=== PATIENT | female | born 1975 | race Caucasian/White ===

== ENCOUNTER 2018-01-11 19:41 | Emergency (ER) | END 2018-01-11 20:00 | disposition left against medical advice (07) ==

== ENCOUNTER 2018-01-11 23:30 | Emergency (ER) | END 2018-01-12 03:27 | disposition home or self-care (01) ==

== ENCOUNTER 2018-09-05 08:41 | Emergency (ER) | payer MEDICAID ==
[~2018-09-05] VITALS: Ht 162.6 cm; Wt 88.5 kg
[~2018-09-05 08:41] MED LIST: ACET500C5 PO; CYCL10TA7 PO
[2018-09-05 08:43] VITALS: Ht 162.6 cm; Wt 88.5 kg
[2018-09-05] MEDS ORDERED: HYDROCODONE/APAP (5/325) TAB PO ONE (09:00)
[2018-09-05] MEDS ORDERED: NAPR-985 PO (10:22)
[2018-09-05] MEDS ORDERED: TRAM50TA2 PO (10:22)
--- NOTE | 2018-09-05 10:30 | ERD ---
ER Documentation Chief Complaint Chief Complaint B/L KNEE PAIN X 1 WEEK HPI Patient is a 43-year-old female presents the ER for concerns of bilateral knee pain x1 week. Patient states her left knee is worse in her right knee. Patient states she has had right knee pain for the last year however most recently she started having left knee pain. Patient denies any falls or trauma. 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 Patient denies any fevers or chills. Patient has not taken any pain medications for her symptoms. Patient denies any redness or warmth noted to the knee. Patient states it is swollen. Patient denies any other symptoms at this time ROS All systems reviewed and are negative except as per history of present illness. Medications Home Meds Active Scripts Tramadol HCl (Tramadol HCl) 50 Mg Tablet, 50 MG PO Q6 PRN for PAIN, #7 TAB Prov:CARMITA OLIVER PA-C 09/05/18 Naproxen* (Naprosyn*) 500 Mg Tablet, 500 MG PO BID PRN for PAIN AND/OR INFLAMMATION, #30 TAB Prov:CARMITA OLIVER PA-C 09/05/18 Acetaminophen* (Tylophen*) 500 Mg Capsule, 1 CAP PO Q6H PRN for PAIN AND OR ELEVATED TEMP, #20 CAP Prov:ANDRA COBB NP 01/12/18 Cyclobenzaprine Hcl* (Cyclobenzaprine Hcl*) 10 Mg Tablet, 10 MG PO TID, #15 TAB Prov:ANDRA COBB NP 01/12/18 Reported Medications [none] Unknown Strength No Conflict Check 01/12/18 Allergies Allergies: Uncoded Allergies: NKDA (Allergy, Unknown, 01/12/18) PMhx/Soc History of Surgery: Yes (CHOLECYSTECTOMY, appy) Anesthesia Reaction: No Hx Neurological Disorder: No Hx Respiratory Disorders: No Hx Cardiac Disorders: No Hx Psychiatric Problems: No Hx Miscellaneous Medical Probl: No Hx Alcohol Use: No Hx Substance Use: No Hx Tobacco Use: No Smoking Status: Never smoker FmHx Family History: No diabetes Physical Exam Vitals Vital Signs Date Temp Pulse Resp B/P (MAP) Pulse Ox O2 O2 Flow FiO2 Time Delivery Rate 09/05/18 98.8 80 18 166/85 98 08:43 (112) Physical Exam GENERAL: Well-developed, well-nourished female. Appears in no acute distress. HEAD: Normocephalic, atraumatic. EYES: Pupils are equally reactive bilaterally. EOMs grossly intact. No conjunctival erythema. ENT: Moist mucous membranes. No uvula deviation. No kissing tonsils. NECK: Supple. No meningismus. Normal range of motion of the neck. LUNG: Clear to auscultation bilaterally. No rhonchi, wheezing, rales or coarse breath sounds. HEART: Regular rate and rhythm. No murmurs, rubs or gallops. EXTREMITIES: Equal pulses bilaterally. No peripheral clubbing, cyanosis or edema. No unilateral leg swelling. NEUROLOGIC: Alert and oriented. Moving all four extremities without any difficulty. Normal speech. SKIN: Normal color. Warm and dry. No rashes or lesions. LLE: No obvious deformity. Swelling noted throughout the knee. No warmth or erythema. Decreased range of motion of the knee secondary to pain. Skin is intact. Tender palpation over the medial aspect and lateral aspect of the knee. Sensation intact to light touch. Neurovascularly intact. (Able to plantarflex, dorsiflex, ashley foot, invert foot, raise big toe.) 2+ DP and DT pulses. Results 24 hrs Current Medications Medications Dose Sig/Prieto Start Time Status Last (Trade) Ordered Route PRN Stop Time Admin Dose Reason Admin 1 tab ONCE ONCE 09/05/18 DC 09/05/18 Acetaminophen PO 09:00 09:04 / 09/05/18 09:01 Hydrocodone Bitart ([place] (5/325)) Procedures/MDM SPLINT APPLICATION: The patient was verbally consented at bedside prior to splint application. Patient was explained the risks, benefits and alternatives to this procedure. The patient was neurovascularly intact prior to and status post application of the splint. The patient tolerated the procedure well with no complications. Splint type: knee immobilizer Extremity: left knee Indication: No evidence of acute fracture or dislocation. Mild tricompartmental degenerative joint disease. Moderate sized joint effusion with possible small loose osteochondral body in the posterior femorotibial joint space. MEDICAL DECISION MAKING: This is a 33-year-old female presents the ER for concerns of worsening left knee pain for last week. Vital signs were reviewed. Patient was afebrile. Xrays showed No evidence of acute fracture or dislocation. Mild tricompartmental degenerative joint disease. Moderate sized joint effusion with possible small loose osteochondral body in the posterior femorotibial joint space. Patient was given a knee immobilizer for immobilization. Patient was offered crutches however she declined she states she would not be able to use them. Patient also given ISABELLA wrap per her requests. Patient was advised to follow-up with an child life specialist. Referral information provided. Low suspicion femur fracture, patella fracture, tibial plateau fracture, septic joint, gout, popliteal cyst, osteomyelitis, DVT or compartment syndrome. At this time, unable to rule out any meniscus and knee ligament injuries. PRESCRIPTIONS: Tramadol, naproxen Patient advised not to take tramadol driving or operating any machinery. Understood. DISCHARGE: At this time, patient is stable for discharge and outpatient management. I have instructed the patient to follow-up with his/her primary care physician in 1-2 days. I have discussed with the patient the possibility of needing to see an child life specialist for further workup and imaging if the pain persists. I have instructed the patient to promptly return to the ER for any new or worsening symptoms including increased pain, swelling, redness, warmth or fever. The patient and/or family expressed understanding of and agreement with this plan. All questions were answered. Home care instructions were provided. Disclaimer: Inadvertent spelling and grammatical errors are likely due to EHR/dictation software use and do not reflect on the overall quality of patient care. Also, please note that the electronic time recorded on this note does not necessarily reflect the actual time of the patient encounter. Departure Diagnosis: Primary Impression: Knee pain Chronicity: acute Laterality: left Qualified Codes: M25.562 - Pain in left knee Additional Impression: Joint effusion Condition: Fair Patient Instructions: Knee Pain, Uncertain Cause Referrals: [facility] YOU HAVE RECEIVED A MEDICAL SCREENING EXAM AND THE RESULTS INDICATE THAT YOU DO NOT HAVE A CONDITION THAT REQUIRES URGENT TREATMENT IN THE EMERGENCY DEPARTMENT. FURTHER EVALUATION AND TREATMENT OF YOUR CONDITION CAN WAIT UNTIL YOU ARE SEEN IN YOUR DOCTORS OFFICE WITHIN THE NEXT 1-2 DAYS. IT IS YOUR RESPONSIBILITY TO MAKE AN APPOINTMENT FOR FOLOW-UP CARE. IF YOU HAVE A PRIMARY DOCTOR --you should call your primary doctor and schedule an appointment IF YOU DO NOT HAVE A PRIMARY DOCTOR YOU CAN CALL OUR PHYSICIAN REFERRAL HOTLINE AT IF YOU CAN NOT AFFORD TO SEE A PHYSICIAN YOU CAN CHOSE FROM THE FOLLOWING [facility] [address] [place] [facility] [address] [facility] [address] [facility] [address] [facility] [address] [facility]. [facility]. [address] [facility]. [facility] YOU HAVE RECEIVED A MEDICAL SCREENING EXAM AND THE RESULTS INDICATE THAT YOU DO NOT HAVE A CONDITION THAT REQUIRES URGENT TREATMENT IN THE EMERGENCY DEPARTMENT. FURTHER EVALUATION AND TREATMENT OF YOUR CONDITION CAN WAIT UNTIL YOU ARE SEEN IN YOUR DOCTORS OFFICE WITHIN THE NEXT 1-2 DAYS. IT IS YOUR RESPONSIBILITY TO MAKE AN APPOINTMENT FOR FOLOW-UP CARE. IF YOU HAVE A PRIMARY DOCTOR --you should call your primary doctor and schedule and appointment IF YOU DO NOT HAVE A PRIMARY DOCTOR YOU CAN CALL OUR PHYSICIAN REFERRAL HOTLINE AT . IF YOU CAN NOT AFFORD TO SEE A PHYSICIAN YOU CAN CHOSE FROM THE FOLLOWING [facility] INSTITUTIONS: [facility] [id number] [place] [address] [facility] [address] [place] [address] [facility] [address] [place] [address] Additional Instructions: Call your primary care doctor TOMORROW for an appointment during the next 1-2 days.See the doctor sooner or return here if your condition worsens before your appointment time. CARMITA OLIVER PA-C September 05, 2018 10:30
== END 2018-09-05 10:33 | disposition home or self-care (01) ==
LOC: FTE 08:41
DX: M25.462 Effusion, left knee (principal)
CPT/HCPCS: 29505; 73562; Z7502